=== PATIENT | female | born 1970 | race Hispanic/Latino ===

== ENCOUNTER → 2023-01-31 | Outpatient (CLI) | payer OTHER ==
[2023-01-31 08:57] LABS: EOSINOPHILS % (AUTO) 3.3 % (0.0-8.0); HEMATOCRIT 43.9 % (36-48); LYMPHOCYTES % (AUTO) 33.4 % (21.0-51.0); MEAN CORPUSCULAR HEMOGLOBIN 31.1 pg (27.0-33.0); MEAN CORPUSCULAR HGB CONC 33.3 g/dL (32.0-36.0); MEAN CORPUSCULAR VOLUME 93.6 fL (79-99); MONOCYTES % (AUTO) 10.2 % (3.0-13.0); NEUTROPHILS % (AUTO) 51.8 % (40.0-77.0); PLATELET COUNT (AUTO) 194 K/uL (130-400); RED BLOOD CELL COUNT(AUTO) 4.69 MIL/uL (4.00-5.50); RED CELL DISTRIBUTION WIDTH 12.8 % (11.0-15.5); WHITE BLOOD COUNT (AUTO) 3.1 K/uL (4.8-10.8)
[2023-01-31 09:00] LABS: APPEARANCE,URINE CLEAR (CLEAR); BILIRUBIN,URINE NEGATIVE (NEGATIVE); COLOR,URINE LIGHT-YELLOW (YELLOW); GLUCOSE, URINE (UA) NEGATIVE (NEGATIVE); KETONES,URINE NEGATIVE (NEGATIVE); LEUKOCYTE ESTERASE ,URINE NEGATIVE Leu/uL (NEGATIVE); NITRATE,URINE NEGATIVE (NEGATIVE); OCCULT BLOOD,URINE NEGATIVE (NEGATIVE); PROTEIN,URINE NEGATIVE (NEGATIVE); UROBILINOGEN,URINE 0.2 mg/dL (0.2-1.0)
[2023-01-31 09:09] LABS: HEMOGLOBIN A1C 5.5 % (4.0-6.0)
[2023-01-31 09:39] LABS: ALBUMIN 3.9 g/dL (3.5-5.0); CREATININE 0.6 mg/dL (0.5-1.5); MAGNESIUM 2.1 mg/dL (1.80-2.40); POTASSIUM 4.2 mmol/L (3.5-5.1); TOTAL PROTEIN, SERUM 7.6 g/dL (6.0-8.3)
== END | disposition home or self-care (01) ==
LOC: LAB 08:26
PROVIDERS: ATTEND Nurse Practitioner Family
DX: Z00.01 Encounter for general adult medical examination with abnormal findings (principal); R53.82 Chronic fatigue, unspecified
CPT/HCPCS: 36415; 80053; 80061; 81003; 82306; 82607; 83036; 83735; 84443; 85025

== ENCOUNTER → 2023-05-23 | Outpatient (CLI) | payer OTHER ==
[2023-05-23 08:56] LABS: BASOPHILS % (AUTO) 1.2 % (0.0-5.0); HEMATOCRIT 47.1 % (36-48); LYMPHOCYTES % (AUTO) 31.5 % (21.0-51.0); MEAN CORPUSCULAR HGB CONC 33.8 g/dL (32.0-36.0); MEAN CORPUSCULAR VOLUME 91.8 fL (79-99); MONOCYTES % (AUTO) 9.9 % (3.0-13.0); NEUTROPHILS % (AUTO) 53.4 % (40.0-77.0); PLATELET COUNT (AUTO) 187 K/uL (130-400); RED BLOOD CELL COUNT(AUTO) 5.13 MIL/uL (4.00-5.50); RED CELL DISTRIBUTION WIDTH 12.8 % (11.0-15.5); WHITE BLOOD COUNT (AUTO) 3.2 K/uL (4.8-10.8)
[2023-05-23 09:04] LABS: HEMOGLOBIN A1C 5.1 % (4.0-6.0)
[2023-05-23 09:36] LABS: ALBUMIN 4.2 g/dL (3.5-5.0); CREATININE 0.6 mg/dL (0.5-1.5); MAGNESIUM 1.9 mg/dL (1.80-2.40); THYROID STIMULATING HORMONE 1.65 uIU/mL (0.36-3.74); TOTAL PROTEIN, SERUM 8.1 g/dL (6.0-8.3)
== END | disposition home or self-care (01) ==
LOC: LAB 07:59
PROVIDERS: ATTEND Nurse Practitioner Family
DX: E55.9 Vitamin D deficiency, unspecified (principal); R53.82 Chronic fatigue, unspecified; N95.9 Unspecified menopausal and perimenopausal disorder
CPT/HCPCS: 36415; 80053; 80061; 82306; 82607; 82626; 82670; 82679; 83001; 83002; 83036; 83735; 84144; 84402; 84403; 84443; 85025

== ENCOUNTER → 2023-08-30 | Outpatient (CLI) | payer OTHER | END | disposition home or self-care (01) | LOC: RAH 13:07 | PROVIDERS: ATTEND Nurse Practitioner Family | DX: M77.32 Calcaneal spur, left foot (principal); M79.672 Pain in left foot | CPT/HCPCS: 73650 ==

== ENCOUNTER 2023-09-16 17:59 | Emergency (ER) | payer OTHER ==
[~2023-09-16] VITALS: Ht 165.1 cm; Wt 97.1 kg
[2023-09-16 18:01] VITALS: BP 155/105; PULSE 57; RESP 20
[2023-09-16 18:48] LABS: APPEARANCE,URINE CLOUDY (CLEAR); BILIRUBIN,URINE NEGATIVE (NEGATIVE); COLOR,URINE LIGHT-ORANGE (YELLOW); GLUCOSE, URINE (UA) NEGATIVE (NEGATIVE); KETONES,URINE NEGATIVE (NEGATIVE); LEUKOCYTE ESTERASE ,URINE 25 Leu/uL (NEGATIVE); NITRATE,URINE NEGATIVE (NEGATIVE); OCCULT BLOOD,URINE LARGE (NEGATIVE); PH,URINE 5.5 (5.0-8.0); PROTEIN,URINE 30 mg/dL (NEGATIVE); UROBILINOGEN,URINE 0.2 mg/dL (0.2-1.0)
[2023-09-16 18:54] LABS: ADD UA MICROSCOPIC YES
[2023-09-16 19:00] LABS: BACTERIA,URINE RARE /HPF (None Seen); MUCUS,URINE RARE LPF (None Seen); RBC,URINE >100 /HPF (0-1); SQUAMOUS EPITHELIAL CELL,UR RARE /HPF (0-2); UNCLASSIFIED CRYSTAL 15 /HPF (None Seen); WBC,URINE 26-50 /HPF (0-1)
[2023-09-16] MEDS ORDERED: HYDROCODONE/ACETAMINOPHEN 5/325 MG TAB PO ONE (19:00)
[2023-09-16] MEDS ORDERED: ONDANSETRON 4MG TABLET PO ONE (19:00)
[2023-09-16] MEDS ORDERED: KETOROLAC 30MG VIAL (30MG/ML) IM ONE (19:00)
[2023-09-16 19:44] LABS: BASOPHILS # (AUTO) 0.02 K/uL (0.00-0.20); BASOPHILS % (AUTO) 0.3 % (0.0-5.0); EOSINOPHILS # (AUTO) 0.11 K/uL (0.00-0.70); EOSINOPHILS % (AUTO) 1.6 % (0.0-8.0); HEMATOCRIT 42.5 % (36-48); IMMATURE GRANULOCYTE ABSOLUTE 0.02 K/uL (0-1); LYMPHOCYTES # (AUTO) 1.2 K/uL (1.0-4.8); LYMPHOCYTES % (AUTO) 17.9 % (21.0-51.0); MEAN CORPUSCULAR HEMOGLOBIN 31.4 pg (27.0-33.0); MEAN CORPUSCULAR HGB CONC 34.6 g/dL (32.0-36.0); MEAN CORPUSCULAR VOLUME 90.8 fL (79-99); MONOCYTES # (AUTO) 0.6 K/uL (0.1-1.0); MONOCYTES % (AUTO) 8.2 % (3.0-13.0); NEUTROPHILS # (AUTO) 4.9 K/uL (1.8-7.7); NEUTROPHILS % (AUTO) 71.7 % (40.0-77.0); PLATELET COUNT (AUTO) 200 K/uL (130-400); RED BLOOD CELL COUNT(AUTO) 4.68 MIL/uL (4.00-5.50); RED CELL DISTRIBUTION WIDTH 12.3 % (11.0-15.5); WHITE BLOOD COUNT (AUTO) 6.8 K/uL (4.8-10.8)
[2023-09-16 19:55] LABS: CREATININE 0.8 mg/dL (0.5-1.5); POTASSIUM 3.7 mmol/L (3.5-5.1)
[2023-09-16 19:59] LABS: ALBUMIN 3.7 g/dL (3.5-5.0); BILIRUBIN,TOTAL 0.2 mg/dL (0.2-1.0); TOTAL PROTEIN, SERUM 7.6 g/dL (6.0-8.3)
[2023-09-16] MEDS ORDERED: PHENAZOPYRIDINE HCL 200 MG TABLET PO ONE (20:30)
[2023-09-16] MEDS ORDERED: TAMSULOSIN HCL 0.4 MG CAP.ER.24H PO ONE (20:30)
[2023-09-16] MEDS ORDERED: CEFD300C3 PO (20:34)
[2023-09-16] MEDS ORDERED: NAPR-1023 PO (20:34)
[2023-09-16] MEDS ORDERED: ACET-2079 PO (20:34)
[2023-09-16] MEDS ORDERED: PHEN-847 PO (20:34)
[2023-09-16] MEDS ORDERED: TAMS-1 PO (20:34)
== END 2023-09-16 20:56 | disposition home or self-care (01) ==
LOC: EDH 17:59
DX: R10.9 Unspecified abdominal pain (principal); R39.15 Urgency of urination; Z87.442 Personal history of urinary calculi; Z90.710 Acquired absence of both cervix and uterus; Z98.890 Other specified postprocedural states
CPT/HCPCS: 99285; 74176; 80053; 83690; 85025; 87088; 81001; 81025; 36415; 96372; 93005; Q0162; J1885

== ENCOUNTER → 2024-02-28 | Outpatient (CLI) | payer OTHER ==
[~2024-02-28] MED LIST: ACET-2079 PO; CEFD300C3 PO; NAPR-1023 PO; PHEN-847 PO; TAMS-1 PO
[2024-02-28 08:41] LABS: BASOPHILS # (AUTO) 0.03 K/uL (0.00-0.20); BASOPHILS % (AUTO) 0.8 % (0.0-5.0); EOSINOPHILS # (AUTO) 0.15 K/uL (0.00-0.70); HEMATOCRIT 41.8 % (36-48); IMMATURE GRANULOCYTE ABSOLUTE 0.01 K/uL (0-1); LYMPHOCYTES # (AUTO) 1.1 K/uL (1.0-4.8); LYMPHOCYTES % (AUTO) 29.9 % (21.0-51.0); MEAN CORPUSCULAR HEMOGLOBIN 30.7 pg (27.0-33.0); MEAN CORPUSCULAR VOLUME 90.5 fL (79-99); MONOCYTES # (AUTO) 0.3 K/uL (0.1-1.0); MONOCYTES % (AUTO) 7.3 % (3.0-13.0); NEUTROPHILS # (AUTO) 2.1 K/uL (1.8-7.7); NEUTROPHILS % (AUTO) 57.7 % (40.0-77.0); PLATELET COUNT (AUTO) 205 K/uL (130-400); RED BLOOD CELL COUNT(AUTO) 4.62 MIL/uL (4.00-5.50); RED CELL DISTRIBUTION WIDTH 12.4 % (11.0-15.5); WHITE BLOOD COUNT (AUTO) 3.7 K/uL (4.8-10.8)
[2024-02-28 09:02] LABS: HEMOGLOBIN A1C 5.6 % (4.0-6.0)
[2024-02-28 09:07] LABS: ALBUMIN 3.8 g/dL (3.5-5.0); BILIRUBIN,TOTAL 0.3 mg/dL (0.2-1.0); CREATININE 0.6 mg/dL (0.5-1.0); THYROID STIMULATING HORMONE 2.7 uIU/mL (0.36-3.74); TOTAL PROTEIN, SERUM 7.8 g/dL (6.0-8.3)
== END | disposition home or self-care (01) ==
LOC: LAB 07:32
PROVIDERS: ATTEND Nurse Practitioner Family
DX: E78.5 Hyperlipidemia, unspecified (principal); N95.9 Unspecified menopausal and perimenopausal disorder
CPT/HCPCS: 36415; 80053; 80061; 82627; 82670; 82679; 83001; 83002; 83036; 84140; 84144; 84403; 84443; 85025

== ENCOUNTER → 2024-03-20 | Outpatient (CLI) | payer OTHER | END | disposition home or self-care (01) | LOC: RAH 10:06 | PROVIDERS: ATTEND Podiatrist | DX: M84.375D Stress fracture, left foot, subsequent encounter for fracture with routine healing (principal); M79.672 Pain in left foot; R26.2 Difficulty in walking, not elsewhere classified; R60.0 Localized edema; X58.XXXD Exposure to other specified factors, subsequent encounter | CPT/HCPCS: 73721 ==

== ENCOUNTER → 2024-07-28 | Outpatient (CLI) | payer OTHER ==
[2024-07-28 11:12] LABS: ADD UA MICROSCOPIC YES; APPEARANCE,URINE CLOUDY (CLEAR); BILIRUBIN,URINE NEGATIVE (NEGATIVE); COLOR,URINE YELLOW (YELLOW); GLUCOSE, URINE (UA) NEGATIVE (NEGATIVE); KETONES,URINE NEGATIVE (NEGATIVE); LEUKOCYTE ESTERASE ,URINE MODERATE Leu/uL (NEGATIVE); NITRATE,URINE NEGATIVE (NEGATIVE); OCCULT BLOOD,URINE MODERATE (NEGATIVE); PH,URINE 5.5 (5.0-8.0); PROTEIN,URINE 30 mg/dL (NEGATIVE); UROBILINOGEN,URINE 0.2 mg/dL (0.2-1.0)
[2024-07-28 11:19] LABS: RBC,URINE 26-50 /HPF (0-1); WBC,URINE 26-50 /HPF (0-1)
[2024-07-28 11:20] LABS: BACTERIA,URINE Moderate /HPF (None Seen)
== END | disposition home or self-care (01) ==
LOC: LAB 10:05
PROVIDERS: ATTEND Nurse Practitioner Family
DX: R30.0 Dysuria (principal); Z87.442 Personal history of urinary calculi
CPT/HCPCS: 81001; 87086; 87186

== ENCOUNTER → 2024-09-09 | Outpatient (CLI) | payer OTHER ==
[2024-09-09 08:34] LABS: BASOPHILS # (AUTO) 0.04 K/uL (0.00-0.20); BASOPHILS % (AUTO) 1.2 % (0.0-5.0); EOSINOPHILS # (AUTO) 0.16 K/uL (0.00-0.70); HEMATOCRIT 39.2 % (36-48); IMMATURE GRANULOCYTE ABSOLUTE 0.01 K/uL (0-1); LYMPHOCYTES # (AUTO) 1.1 K/uL (1.0-4.8); LYMPHOCYTES % (AUTO) 33.4 % (21.0-51.0); MEAN CORPUSCULAR HEMOGLOBIN 31.1 pg (27.0-33.0); MEAN CORPUSCULAR HGB CONC 33.9 g/dL (32.0-36.0); MEAN CORPUSCULAR VOLUME 91.8 fL (79-99); MONOCYTES # (AUTO) 0.3 K/uL (0.1-1.0); MONOCYTES % (AUTO) 8.7 % (3.0-13.0); NEUTROPHILS # (AUTO) 1.7 K/uL (1.8-7.7); NEUTROPHILS % (AUTO) 51.4 % (40.0-77.0); PLATELET COUNT (AUTO) 183 K/uL (130-400); RED BLOOD CELL COUNT(AUTO) 4.27 MIL/uL (4.00-5.50); RED CELL DISTRIBUTION WIDTH 12.2 % (11.0-15.5); WHITE BLOOD COUNT (AUTO) 3.2 K/uL (4.8-10.8)
[2024-09-09 08:44] LABS: HEMOGLOBIN A1C 5.2 % (4.0-6.0)
[2024-09-09 08:55] LABS: ALBUMIN 3.8 g/dL (3.5-5.0); BILIRUBIN,TOTAL 0.5 mg/dL (0.2-1.0); CREATININE 0.6 mg/dL (0.5-1.0); POTASSIUM 4.2 mmol/L (3.5-5.1); THYROID STIMULATING HORMONE 2.4 uIU/mL (0.36-3.74); TOTAL PROTEIN, SERUM 7.5 g/dL (6.0-8.3)
== END | disposition home or self-care (01) ==
LOC: RAH 08:07
PROVIDERS: ATTEND Nurse Practitioner Family
DX: Z13.228 Encounter for screening for other metabolic disorders (principal); Z11.59 Encounter for screening for other viral diseases; Z13.1 Encounter for screening for diabetes mellitus; E78.5 Hyperlipidemia, unspecified; R53.82 Chronic fatigue, unspecified
CPT/HCPCS: 36415; 80053; 80061; 83036; 84443; 85025; 86803

== ENCOUNTER → 2024-11-30 | Outpatient (CLI) | payer OTHER ==
[~2024-11-30] MED LIST changes: +DICY10CA2 PO; +DIPH1TAB PO
--- NOTE | 2024-11-30 12:58 | HMCIMG ---
LUMBAR W FLEXION/EXTENSION REASON: VERTEBROGENIC LOW BACK PAIN. COMPARISON: None TECHNIQUE: 4 images of lumbar spine were obtained including flexion and extension views. FINDINGS: Grade 1 1 anterolisthesis is seen at L4-5 level. Disc space narrowing is seen at L5-S1 level. No loss of vertebral height is seen. No fracture or dislocation is seen. IMPRESSION: Findings as described above.
== END | disposition home or self-care (01) ==
LOC: RAH 11:34
PROVIDERS: ATTEND Physical Medicine & Rehabilitation
DX: M48.07 Spinal stenosis, lumbosacral region (principal); M54.51 Vertebrogenic low back pain; E55.9 Vitamin D deficiency, unspecified
CPT/HCPCS: 72114; 82306

== ENCOUNTER → 2024-12-29 | Outpatient (CLI) | payer OTHER ==
[~2024-12-29] MED LIST changes: +DICY-20 PO; -DICY10CA2 PO; -NAPR-1023 PO; +NAPR-1194 PO
== END | disposition home or self-care (01) ==
LOC: LAB 08:32
PROVIDERS: ATTEND Nurse Practitioner Family
DX: R61 Generalized hyperhidrosis (principal)
CPT/HCPCS: 36415; 82670; 82679; 83001; 83002; 84140; 84144; 84402; 84403

== ENCOUNTER → 2024-12-30 | Outpatient (CLI) | payer OTHER ==
--- NOTE | 2024-12-31 12:05 | HMCIMG ---
[facility] DI[facility]NOSTIC BILATERAL HISTORY: Screening mammogram. COMPARISON: None TECHNIQUE: Bilateral screening mammogram with CAD was performed with craniocaudal and mediolateral oblique projections. Additional tomosynthesis images were obtained. FINDINGS: The breasts are heterogeneously dense which may obscure small masses. There is no evidence of a dominant mass, or suspicious microcalcification. There is no evidence of nipple retraction or skin thickening. IMPRESSION: 1. No dominant mass is seen to suggest a malignant process. Patient was entered into a reminder system with a target due date for their next mammogram. BI-RADS: CATEGORY 2: BENIGN FINDINGS Recommend monthly self breast exam as well as annual clinical examination. A negative x-ray should not delay biopsy if a dominant or clinically suspicious mass is present, since 8-10% of cancers are not identified by mammography. Dense breasts particularly, may obscure an underlying neoplasm. Some of these may be detected clinically and therefore, clinical examination is an essential part of breast evaluation.
== END | disposition home or self-care (01) ==
LOC: RAH 14:59
PROVIDERS: ATTEND Nurse Practitioner Family
DX: N60.12 Diffuse cystic mastopathy of left breast (principal); N60.11 Diffuse cystic mastopathy of right breast; R92.333 Mammographic heterogeneous density, bilateral breasts
CPT/HCPCS: 36415; 77062; 77066; 82670; 82679; 83001; 83002; 84140; 84144; 84402; 84403

== ENCOUNTER → 2025-01-14 | Outpatient (CLI) | payer OTHER ==
--- NOTE | 2025-01-14 08:49 | HMCIMG ---
CT LUMBAR SPINE W/O CONTRAST HISTORY: Low back pain COMPARISON: None TECHNIQUE: Multiple sequential axial images of the lumbar spine were obtained including post processing sagittal and coronal reconstruction images. Patient was not given contrast through intravenous route. FINDINGS: Degenerative changes with lumbar spine spondylosis. Central canal narrowing is seen at all levels. Disc/osteophyte complexes are seen at L1-2 levels. There is no loss of vertebral height. Evaluation for disc and cord pathology is limited with CT study. No evidence of fracture or dislocation is seen. IMPRESSION: 1. No fracture is seen. DJD with lumbar spine spondylosis. CT was performed with one or more following dose reduction techniques: automated exposure control, adjustment of the mA and kv according to patient's size, or use of a iterative reconstruction technique.
== END | disposition home or self-care (01) ==
LOC: RAH 08:09
PROVIDERS: ATTEND Physical Medicine & Rehabilitation
DX: M47.816 Spondylosis without myelopathy or radiculopathy, lumbar region (principal); M48.061 Spinal stenosis, lumbar region without neurogenic claudication
CPT/HCPCS: 72131

== ENCOUNTER 2025-02-01 10:01 | Emergency (ER) | payer OTHER ==
[~2025-02-01] VITALS: Ht 165.1 cm; Wt 106.6 kg
[2025-02-01] MEDS ORDERED: IBUP-2077 PO (10:10)
--- NOTE | 2025-02-01 10:10 | ERN ---
ED Note History of Present Illness Stated Complaint: CHRONIC LT ANKLE PAIN Chief Complaint: Ankle Problem Time Seen by MD: 10:04 Dictation: PATIENT IS A 54-YEAR-OLD FEMALE HERE WITH COMPLAINTS OF CHRONIC LEFT ACHILLES TENDON PAIN SHE HAS HAD FOR SEVERAL MONTHS. SHE STATES SHE HAS ALREADY BEEN THROUGH THERAPY FOR FOUR WEEKS BY HER DOCTOR, DR. VOGT. SHE HAS A BOOT IN PLACE WITH A AN MCKENNA WRAP. SHE THINKS THE PAIN GOT WORSE AFTER SHE WORKED A17 HOUR SHIFT LAST SATURDAY. SHE DENIES ANY TRAUMA OR FALLS. Allergies: Coded Allergies: No Known Allergies (Unverified Allergy, Unknown, 09/16/23) Home Meds Active Scripts Dicyclomine HCl (Dicyclomine HCl) 10 Mg Capsule, 10 MG PO Q6HPRN PRN for ABDOMINAL CRAMPS, #15 CAP Prov:RIP MOBLEY NP 09/15/24 Diphenoxylate HCl/Atropine (Lomotil Tablet) 2.5 Mg-0.025 Mg Tablet, 1 EACH PO Q6HPRN PRN for DIARRHEA, #10 TAB ONE TABLET BY MOUTH EVERY 6 HOURS NEEDED FOR DIARRHEA. Prov:RIP MOBLEY NP 09/15/24 Naproxen (Naproxen) 500 Mg Tablet, 500 MG PO BID for 5 Days, #10 TAB Prov:ELIZ POWELL 09/16/23 Tamsulosin HCl (Flomax) 0.4 Mg Cap.er.24h, 0.4 MG PO DAILY for 10 Days, #10 CAPSULE. Prov:ELIZ POWELL 09/16/23 Phenazopyridine HCl (Pyridium) 200 Mg Tab, 200 MG PO BID for 3 Days, #9 TAB Prov:ELIZ POWELL 09/16/23 Cefdinir (Cefdinir) 300 Mg Capsule, 300 MG PO BID for 10 Days, #20 CAP Prov:ELIZ POWELL 09/16/23 Acetaminophen with Codeine (Acetaminophen-Cod #3 Tablet) 300 Mg-30 Mg Tablet, 1 TAB PO Q4H PRN for n20.0 for 5 Days, #7 TAB Prov:ELIZ POWELL 09/16/23 Past Medical History Past Medical History: Kidney Stone Additional Past Medical Hx: LT ACHILLES TENDON Surgical History: Hysterectomy, Bariatric Surgery, Surgical History Other: GASTRIC SLEEVE History: Not Applicable RN Note Reviewed/Agreed w/PFSH: Yes Review of System Dictation CONSTITUTIONAL: NEGATIVE EXCEPT FOR HPI HEAD/FACE: NEGATIVE EXCEPT FOR HPI EENT: NEGATIVE EXCEPT FOR HPI RESPIRATORY: NEGATIVE EXCEPT FOR HPI GASTROINTESTINAL/ABDOMINAL: NEGATIVE EXCEPT FOR HPI GENITOURINARY: NEGATIVE EXCEPT FOR HPI MUSCULOSKELETAL: NEGATIVE EXCEPT FOR HPI CHRONIC LEFT ACHILLES TENDON PAIN INTEGUMENTARY: NEGATIVE EXCEPT FOR HPI NEUROLOGICAL/PSYCH: NEGATIVE EXCEPT FOR HPI HEMATOLOGIC/LYMPHATIC: NEGATIVE EXCEPT FOR HPI ALL SYSTEMS NEGATIVE, EXCEPT NOTED ABOVE. 13 POINT REVIEW OF SYSTEMS ASSESSED AND ALL NEGATIVE EXCEPT FOR ABOVE. Initial Vital Sign VS Vital Signs Date Time Temp Pulse Resp B/P (MAP) Pulse Ox O2 Delivery O2 Flow Rate FiO2 02/01/25 10:02 98.2 72 16 137/97 97 Room Air 0 Physical Exam Dictation VITAL SIGNS REVIEWED GENERAL APPEARANCE: ALERT, ORIENTED X 3, MILD ACUTE DISTRESS, WELL DEVELOPED, NOURISHED. OBESE HEAD AND FACE: NON-TRAUMATIC. EYES: PERRL, PINK CONJUNCTIVAS, EYELID NO TRAUMA, ANTERIOR CHAMBER WITH ARCUS SENILIS. EARS: PINNAS INTACT AND NO SIGNS OF TRAUMA OR ERYTHEMA EAR CANALS CLEAR AND NO DISCHARGE TM NO ERYTHEMA NOSE: NO DISCHARGE, NO BLEEDING. OROPHARYNX: MOUTH NORMAL, TONGUE PINK, PHARYNX CLEAR,NO ERYTHEMA, TONSILS NO EXUDATES, NO ABSCESSES NOTED, MUCOUS MEMBRANE MOIST NECK: SUPPLE, NON-TENDER, NO THYROMEGALY, NO MASSES, NO JVD, NO BRUITS BREAST:DEFERRED CHEST:NO TENDERNESS, NO CREPITUS, NO PARADOXICAL MOVEMENT, NO RETRACTIONS LUNGS:CLEAR, WELL-VENTILATED, SYMMETRIC, NO RALES, NO WHEEZING, NO RHONCHI, NO STRIDOR, GOOD BREATH SOUNDS BILATERALLY HEART: REGULAR RATE, REGULAR RHYTHM, NO MURMUR, NO GALLOPS VASCULAR: NO PERIPHERAL EDEMA, ABDOMEN: SOFT, POSITIVE BOWEL SOUNDS, NONDISTENDED, NO GUARDING, NONTENDER, NO REBOUND, NO MASSES NO HEPATOMEGALY, NO SPLENOMEGALY, NO MATTHEW'S SIGN, NO HERNIAS. RECTAL: DEFERRED GENITAL: DEFERRED MCKENNA WRAP AND BOOT IN PLACE FROM HOME. NOT REMOVED NEUROLOGICAL: NORMAL SPEECH, MOTOR FUNCTION INTACT, SENSORY FUNCTION INTACT MUSCULOSKELETAL: NECK NONTENDER, FULL RANGE OF MOTION, BACK NONTENDER, FULL RANGE OF MOTION, EXTREMITIES: NONTENDER, FULL RANGE OF MOTION SKIN: COLOR PINK, DRY, NO TURGOR, NO RASH, NO LACERATIONS, NO ABRASIONS, NO CONTUSIONS. LYMPHATIC: DEFERRED Results (Laboratory/Radiology) Labs Reviewed?: Yes ED Course ED Course Orders Procedure Category Date Status Time Ketorolac 60mg/2ml PHA 02/01/25 Verified (Toradol 60mg/2ml) 10:30 Vital Signs Date Time Temp Pulse Resp B/P (MAP) Pulse Ox O2 Delivery O2 Flow Rate FiO2 02/01/25 10:02 98.2 72 16 137/97 97 Room Air 0 1005/PATIENT GIVEN SHOT OF TORADOL 60 MG AND TOLD TO SEE HER PRIMARY CARE DOCTOR FOR MANAGEMENT. Medical Decision Making MDM MEDICAL DISCHARGE MAKING BASED ON EMPIRIC TREATMENT FOR ACUTE ACHILLES TENDONITIS. NO IMAGING OR LABS INDICATED PATIENT GIVEN TORADOL AND TOLD TO SEE HER PRIMARY CARE DOCTOR FOR MANAGEMENT DX & DISP Disposition: Discharge Departure Impression: Primary Impression: Tendonitis, Achilles, left Condition: Stable Scripts Ibuprofen (Ibuprofen 800 mg Tab) 800 Mg Tab 800 MG PO Q8H PRN for fever or pain, #30 TAB 0 Refills Prov: RIP MOBLEY NP 02/01/25 Additional Instructions: FOLLOW-UP WITH PRIMARY CARE PROVIDER IN 1 TO 2 DAYS. TAKE MEDICATIONS DIRECTED HERE IN THE EMERGENCY ROOM. OKAY TO CONTINUE HOME MEDICATIONS UNLESS OTHERWISE DISCUSSED DURING YOUR VISIT IN THE EMERGENCY ROOM TODAY. RETURN TO YOUR NEAREST EMERGENCY ROOM IF SYMPTOMS WORSEN OR IF THERE IS NO IMPROVEMENT. CALL 911 IF YOU NEED IMMEDIATE ASSISTANCE. TAKE TYLENOL OR MOTRIN [id number] TER NEEDED AND IF NO CONTRAINDICATIONS ARE PRESENT. INCREASE ORAL HYDRATION. A WOUND CULTURE OR URINE CULTURE WAS ORDERED HERE IN THE EMERGENCY ROOM DEPARTMENT PLEASE FOLLOW-UP WITH PRIMARY CARE PROVIDER AND ADVISE THEM TO GET REPEAT PORTS FROM OUR FACILITY. IF YOU HAD ANY MCKENNA WRAP/SPLINTS THAT WERE APPLIED HERE, PLEASE DO NOT REMOVE THEM UNTIL YOU SEE YOUR PRIMARY CARE OR SP ECIALTY. CONTINUE WITH SURGICAL BOOT AND MCKENNA WRAP. FOLLOW UP WITH YOUR PRIMARY CARE DOCTOR TODAY FOR MANAGEMENT OF YOUR CHRONIC LEFT ACHILLES TENDON PAIN Referrals: CINDY CORTES (PCP) Time of Disposition: 10:09 I have reviewed the case, and I agree with, Diagnosis and Plan RIP MOBLEY NP Feb 01, 2025 10:10
[2025-02-01 10:29] VITALS: BP 137/97; PULSE 70; RESP 16; TEMP 98.2; O2SAT 97
[2025-02-01] MEDS: ketOROlac 60 MG VIAL (30MG/ML) IM ONE (10:42)
== END 2025-02-01 10:44 | disposition home or self-care (01) ==
LOC: EDH 10:01
DX: M76.62 Achilles tendinitis, left leg (principal); Z90.710 Acquired absence of both cervix and uterus; Z79.899 Other long term (current) drug therapy
CPT/HCPCS: 99283; 96372; J1885

== ENCOUNTER → 2025-03-15 | Outpatient (CLI) | payer OTHER ==
[~2025-03-15] MED LIST changes: +CETI10TA57 PO; +IBUP-2077 PO; +MAGN400C PO; +MONT-39 PO; -TAMS-1 PO; +TAMS-55 PO; +ZOLP-684 PO
[2025-03-15 07:58] LABS: BASOPHILS # (AUTO) 0.04 K/uL (0.00-0.20); BASOPHILS % (AUTO) 0.9 % (0.0-5.0); EOSINOPHILS # (AUTO) 0.12 K/uL (0.00-0.70); EOSINOPHILS % (AUTO) 2.7 % (0.0-8.0); HEMATOCRIT 42.1 % (36-48); LYMPHOCYTES # (AUTO) 1.5 K/uL (1.0-4.8); LYMPHOCYTES % (AUTO) 33.3 % (21.0-51.0); MEAN CORPUSCULAR HGB CONC 34.4 g/dL (32.0-36.0); MONOCYTES # (AUTO) 0.3 K/uL (0.1-1.0); MONOCYTES % (AUTO) 7.7 % (3.0-13.0); NEUTROPHILS # (AUTO) 2.4 K/uL (1.8-7.7); NEUTROPHILS % (AUTO) 55.4 % (40.0-77.0); PLATELET COUNT (AUTO) 207 K/uL (130-400); RED BLOOD CELL COUNT(AUTO) 4.68 MIL/uL (4.00-5.50); RED CELL DISTRIBUTION WIDTH 12.3 % (11.0-15.5); WHITE BLOOD COUNT (AUTO) 4.4 K/uL (4.8-10.8)
[2025-03-15 08:05] LABS: CREATININE 0.6 mg/dL (0.5-1.0); POTASSIUM 3.8 mmol/L (3.5-5.1)
[2025-03-15 08:12] LABS: HEMOGLOBIN A1C 5.8 % (4.0-6.0)
--- NOTE | 2025-03-15 08:17 | EKG ---
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
[2025-03-15 08:20] LABS: INR 1.02 (0.85-1.15); PROTHROMBIN TIME 10.8 SEC (9.6-11.6)
[2025-03-15 08:22] LABS: PARTIAL THROMBOPLASTIN TIME 25.6 SEC (26.3-35.5)
--- NOTE | 2025-03-15 12:57 | HMCIMG ---
CHEST 2VWS HISTORY: Preop COMPARISON: None FINDINGS: Frontal and lateral projections of the chest were obtained. There is no acute pulmonary infiltrates or failure. The heart is not enlarged. Prominent interstitial markings are seen. Mild scoliosis is seen. Degenerative changes are seen of the thoracolumbar spine. IMPRESSION: 1. No acute pulmonary infiltrates.
== END | disposition home or self-care (01) ==
LOC: LAB 11:37
PROVIDERS: ATTEND Nurse Practitioner Family
DX: Z01.818 Encounter for other preprocedural examination (principal); I71.40 Abdominal aortic aneurysm, without rupture, unspecified; M41.85 Other forms of scoliosis, thoracolumbar region; M47.815 Spondylosis without myelopathy or radiculopathy, thoracolumbar region
CPT/HCPCS: 36415; 71046; 80048; 83036; 85025; 85610; 85730; 93005

== ENCOUNTER 2025-03-31 06:40 | Day surgery (SDC) | payer OTHER ==
[2025-03-29 10:15] LABS: BASOPHILS # (AUTO) 0.03 K/uL (0.00-0.20); BASOPHILS % (AUTO) 0.7 % (0.0-5.0); EOSINOPHILS # (AUTO) 0.15 K/uL (0.00-0.70); EOSINOPHILS % (AUTO) 3.4 % (0.0-8.0); HEMATOCRIT 42.7 % (36-48); IMMATURE GRANULOCYTE ABSOLUTE 0.01 K/uL (0-1); LYMPHOCYTES # (AUTO) 1.4 K/uL (1.0-4.8); LYMPHOCYTES % (AUTO) 30.6 % (21.0-51.0); MEAN CORPUSCULAR VOLUME 91.4 fL (79-99); MONOCYTES # (AUTO) 0.4 K/uL (0.1-1.0); MONOCYTES % (AUTO) 8.5 % (3.0-13.0); NEUTROPHILS # (AUTO) 2.5 K/uL (1.8-7.7); NEUTROPHILS % (AUTO) 56.6 % (40.0-77.0); PLATELET COUNT (AUTO) 216 K/uL (130-400); RED BLOOD CELL COUNT(AUTO) 4.67 MIL/uL (4.00-5.50); RED CELL DISTRIBUTION WIDTH 12.7 % (11.0-15.5); WHITE BLOOD COUNT (AUTO) 4.5 K/uL (4.8-10.8)
[2025-03-29 10:35] VITALS: BP 128/77; PULSE 92; RESP 17; TEMP 97.8
[2025-03-31] VITALS (17 sets, daily range): BP systolic 105–150; BP diastolic 63–95; PULSE 60–85; RESP 15–18; TEMP 97.4–97.9
[~2025-03-31] VITALS: Ht 167.6 cm; Wt 109.0 kg
[~2025-03-31 06:40] MED LIST changes: -ACET-2079 PO; -CEFD300C3 PO; -DICY-20 PO; -DIPH1TAB PO; +FENTanyl CITRate PF 50 MCG/1 ML 2ML VIAL ONE; -IBUP-2077 PO; +LIDOCAINE PF 100MG/5ML (2%) SYRINGE 5ML ONE; -NAPR-1194 PO; -PHEN-847 PO; +ROPivacaine 0.5% 5MG/ML 30ML ONE; -TAMS-55 PO; +ketaMINE 50MG/ML SYRINGE 50 MG/ML DISP.SYRIN ONE; +proPOFol 10 MG/ML 20ML VIAL IV ONE; +rocuRONium bROMide 10MG/1ML 5ML VL ONE
[2025-03-31] MEDS ORDERED: FAMOTIDINE 20MG VIAL IV ONE (06:45)
[2025-03-31] MEDS ORDERED: GABAPENTIN 300 MG CAPSULE ONE (06:45)
[2025-03-31] MEDS ORDERED: acetaMINOPHEN 100 ML ONE (06:45)
[2025-03-31] MEDS ORDERED: BUPIvacaine/PF 0.5% 30ML VIAL ONE (06:50)
[2025-03-31] MEDS ORDERED: LIDOCAINE HCL 1% 20 ML VIAL ONE (06:50)
[2025-03-31] MEDS ORDERED: ceFAZolin SODIUM 2 GM VIAL ONE (07:38)
[2025-03-31] MEDS ORDERED: MIDAZOLAM HCL 1 MG/ML 2ML VIAL ONE (07:45)
[2025-03-31] MEDS: LACTATED RINGERS 1000ML 1,000 ML IV ONE (07:46)
[2025-03-31] MEDS ORDERED: ondanSETRON 4MG INJ ONE (08:16)
[2025-03-31] MEDS ORDERED: dexaMETHasone SOD PHOSPHATE 10MG/ML 1ML VIAL ONE (08:16)
[2025-03-31] MEDS ORDERED: dexmedeTOMIDine HCL 200 MCG/2 ML VIAL IV ONE (08:36)
[2025-03-31] MEDS ORDERED: GLYCOPYRROLATE 0.2 MG/ML 5 ML VIAL ONE (09:07)
[2025-03-31] MEDS ORDERED: NEOSTIGMINE METHYLSULFATE 1MG/ML IV ONE (09:07)
[2025-03-31] MEDS: BUPIvacaine/PF 0.5% 30ML VIAL ONE (09:28)
--- NOTE | 2025-03-31 09:55 | OP ---
Operative Note: DATE OF PROCEDURE: 03/31/25 SURGEON: CHRIS KOROMA DPM BUNCH MAKER HAND: None ANESTHESIA: General PREOPERATIVE DIAGNOSIS: 1. Insertional Achilles tendinosis left 2. Retrocalcaneal exostosis left POSTOPERATIVE DIAGNOSIS: Same Findings: Retrocalcaneal exostosis was removed and confirmed with C-arm PROCEDURE: 1. Secondary repair Achilles tendon insertion left 2. Partial ostectomy calcaneus left ESTIMATED BLOOD LOSS: Minimal INDICATIONS: Patient exhausted conservative measures and requesting surgical repair Injectables: Popliteal block per anesthesia and postoperative local block was 0.5% Marcaine plain 7 cc Specimen: Achilles tendon left Materials: Morfix 3.5 mm bone anchor, 4-0 Vicryl, 3-0 nylon Hemostasis: Pneumatic thigh tourniquet at 300 mm Hg DESCRIPTION OF PROCEDURE: The patient was brought into the operating room was placed on table in supine position and general anesthesia was induced. Patient was then flipped to the prone position with all the prominences adequately padded. Pneumonic thigh tourniquet was placed with adequate padding of the left thigh. Time-out was called with all the staff in the room to identify the patient procedure and procedure site. Patient's left lower extremity was prepped and draped in the usual aseptic manner, exsanguinated utilizing Esmarch bandage and pneumonic thigh tourniquet was inflated at 300 mm Hg. Procedure 1. Retrocalcaneal exostectomy: A linear longitudinal incision was made just medial to the Achilles tendon incision was reflected medially and laterally to expose the posterior aspect of the Achilles tendon. Small bleeders were coagulated. There was no major neurovascular structure. Achilles tendon insertion site was split in half in the middle and reflected medially and laterally to expose the posterior exostosis. Enthesophyte and intratendinous ossification were debrided and passed from the operative site and sent for pathology. Dorsal superior portion of the calcaneal tuber was also contoured to release the pressure against the anterior aspect of the Achilles tendon. Procedure 2. Secondary repair Achilles tendon: Micro tenotomy was performed at the Achilles tendon insertional site after debriding the tendon structure. Any bulbous area within the insertional area of the Achilles tendon was debrided down to the anatomical size. At this point 3.5 mm bone anchor was placed and the posterior aspect of the calcaneal tuber. The sutures attached to the anchor was then utilized to tubularize the Achilles tendon and to reattached the Achilles tendon insertional site onto the calcaneal tuber. Calcaneal tuber was visualized under the fluoroscopy to make sure no remaining spur formation on the posterior aspect of the calcaneus. The surgical wound was irrigated aggressively utilizing copious amounts of normal sterile saline with a pressure. Subcutaneous tissue layer was reapproximated utilizing 4-0 Vicryl. Skin layer was reapproximated utilizing 3-0 Prolene. The surgical wound was dressed with 4 x 4 and Kerlix followed by Horan compression dressing. Above injectable was utilized to obtain a postoperative block locally. Pneumonic thigh tourniquet was released patient tolerated procedure and anesthesia well. CHRIS KOROMA DPM March 31, 2025 09:55
[2025-03-31] MEDS: FENTanyl CITRate PF 50 MCG/1 ML 2ML VIAL ONE (09:58)
--- NOTE | 2025-03-31 11:00 | NUR ---
Order received and patient seen. Patient to be PWB. Educated on safe use of crutches. Patient was cautioned on ambulation on wet floor or carpet as rubber bottms could slip or catch respectively. Patient was educated to elevate leg and use ice pack for pain and edema control. Patient voiced understanding. Addendum: 03/31/25 at 1335 by TREVER LEYVA PT Amended: Links added.
--- NOTE | 2025-03-31 13:44 | HMCIMG ---
Fluoroscopic guidance History: Osteotomy LT calcaneus Fluoroscopic guidance provided. Procedure by ordering physician in operating room suite with fluoroscopic guidance. Several spot images were obtained. Impression: Fluoroscopic guidance.
== END 2025-03-31 11:32 | disposition home or self-care (01) ==
LOC: DAH 06:40
PROVIDERS: ATTEND Podiatrist
DX: M76.62 Achilles tendinitis, left leg (principal); M67.874 Other specified disorders of tendon, left ankle and foot; M89.9 Disorder of bone, unspecified; M25.572 Pain in left ankle and joints of left foot; Z79.899 Other long term (current) drug therapy; Z98.890 Other specified postprocedural states; Z98.891 History of uterine scar from previous surgery; Z90.710 Acquired absence of both cervix and uterus
CPT/HCPCS: 85025; 36415; 27650; 97161; 64450; 64447; 28118; 88304; 73650; 76942; 97116; A6260; C1713; A4663; A4649; J7120; J3490 ×5; J3010 ×2; J1100; J2003; J2250; J2704; J2405; J2710; J0665; J2795; J0690; A4930; A5120; A4215; A4213; A4222; A4221; A4216; A4223 ×2